=== PATIENT | female | born 1955 | race Hispanic/Latino ===

== ENCOUNTER 2022-12-30 05:57 | Day surgery (SDC) | payer MEDICARE ==
[2022-12-26 14:45] VITALS: BP 165/87; PULSE 76; RESP 19
[2022-12-30] VITALS (9 sets, daily range): BP systolic 109–148; BP diastolic 80–90; PULSE 76–85; RESP 16
[~2022-12-30] VITALS: Ht 156.2 cm; Wt 72.8 kg
[~2022-12-30 05:57] MED LIST: ATOR10 PO; DULO30CA2 PO; LEVO75CA5 PO; VITAMIN D PO; [UNRECOGNIZED DRUG - OTHER] PO; [UNRECOGNIZED DRUG - OTHER] PO
[2022-12-30] MEDS ORDERED: PROPOFOL 10 MG/ML 20ML VIAL IV ONE (08:21)
[2022-12-30] MEDS ORDERED: LIDOCAINE PF 100MG/5ML (2%) SYRINGE 5ML ONE (08:23)
== END 2022-12-30 10:51 | disposition home or self-care (01) ==
LOC: DAH 05:57
PROVIDERS: ATTEND Internal Medicine
DX: R10.9 Unspecified abdominal pain (principal); K29.70 Gastritis, unspecified, without bleeding; K57.30 Diverticulosis of large intestine without perforation or abscess without bleeding; K64.8 Other hemorrhoids; I10 Essential (primary) hypertension; E78.5 Hyperlipidemia, unspecified; F41.8 Other specified anxiety disorders; E03.9 Hypothyroidism, unspecified; Z88.1 Allergy status to other antibiotic agents; Z88.8 Allergy status to other drugs, medicaments and biological substances; Z80.9 Family history of malignant neoplasm, unspecified; Z82.49 Family history of ischemic heart disease and other diseases of the circulatory system; Z79.899 Other long term (current) drug therapy; Z79.890 Hormone replacement therapy
CPT/HCPCS: 43239; 45378; A4215; A4216; A4221; A4222; A4223; A4606; A4620; A4663; A7002; J2001; J2704; J7030; 93005; J3490

== ENCOUNTER → 2023-06-11 | Outpatient (CLI) | payer MEDICARE | END | disposition home or self-care (01) | LOC: RAH 11:23 | PROVIDERS: ATTEND Internal Medicine | DX: E04.2 Nontoxic multinodular goiter (principal) | CPT/HCPCS: 76536 ==

== ENCOUNTER → 2023-09-03 | Outpatient (CLI) | payer OTHER | END | disposition home or self-care (01) | LOC: OIH 08:32 | PROVIDERS: ATTEND Internal Medicine | DX: Z13.6 Encounter for screening for cardiovascular disorders (principal) | CPT/HCPCS: 75571 ==

== ENCOUNTER → 2023-12-18 | Outpatient (CLI) | payer MEDICARE ==
[2023-12-18 10:17] LABS: CREATININE 0.8 mg/dL (0.5-1.0)
== END | disposition home or self-care (01) ==
LOC: LAB 09:38
PROVIDERS: ATTEND Internal Medicine
DX: R10.31 Right lower quadrant pain (principal); R11.0 Nausea
CPT/HCPCS: 36415; 82565; 84520

== ENCOUNTER → 2023-12-21 | Outpatient (CLI) | payer MEDICARE ==
[~2023-12-21] MED LIST changes: +IOHEXOL-350 75 ML VIAL IV ONE
== END | disposition home or self-care (01) ==
LOC: RAH 08:53
PROVIDERS: ATTEND Internal Medicine
DX: K44.9 Diaphragmatic hernia without obstruction or gangrene (principal); K57.30 Diverticulosis of large intestine without perforation or abscess without bleeding; R11.2 Nausea with vomiting, unspecified; R10.11 Right upper quadrant pain; R10.31 Right lower quadrant pain; R14.0 Abdominal distension (gaseous); M47.815 Spondylosis without myelopathy or radiculopathy, thoracolumbar region
CPT/HCPCS: 74178; Q9967